=== PATIENT | female | born 1995 | race Caucasian/White ===

== ENCOUNTER 2019-02-17 14:17 | Inpatient (IN) | payer OTHER ==
[2019-02-17 19:08] VITALS: BMI 18.6
--- NOTE | 2019-02-17 20:06 | HP ---
COWS - Scale Resting Pulse: 2= [place] 101-120 Sweatin=Flushed/Facial Moisture Restless Observation: 5= Unable to Sit Still Pupil Size: 0= Normal to Room Light Bone or Joint Aches: 4=Acute Joint/Muscle Pain Runny Nose/ Eye Tearin= Runny Nose/Eyes GI Upset > 30mins: 2= Nausea/Diarrhea Tremor Observation: 2= Slight Tremor Visible Yawning Observation: 0= None Anxiety or Irritability: 2=Irritable/Anxious Goose Flesh Skin: 3=Piloerection COWS Score: 24 CIWA Score Nausea/Vomitin-Mild Nausea/No Vomiting Muscle Tremors: 3 Anxiety: 4-Mod. Anxious/Guarded Agitation: 4-Moderately Restless Paroxysmal Sweats: 3 Orientation: 1-Uncertain about Date Tacttile Disturbances: 2-Mild Itch/Numbness/Burn Auditory Disturbances: 0-None Visual Disturbances: 0-None Headache: 0-None Present CIWA-Ar Total Score: 18 - Admission Criteria [facility]ASAS Guidelines: Admission for Medically Managed Detox: Requires at least one of the followin. CIWA greater than 12 2. Seizures within the past 24 hours 3. Delirium tremens within the past 24 hours 4. Hallucinations within the past 24 hours 5. Acute intervention needed for co occurring medical disorder 6. Acute intervention needed for co occurring psychiatric disorder 7. Severe withdrawal that cannot be handled at a lower level of care (continued vomiting, continued diarrhea, abnormal vital signs) requiring intravenous medication and/or fluids 8. Patient presents the following: CIWA greater than 12 Admission Criteria Met: Admission criteria met Admission [facility] Chief Complaint: C/O WITHDRAWAL SX'S Allergies/Adverse Reactions: Allergies Allergy/AdvReac Type Severity Reaction Status Date / Time No Known Allergies Allergy Verified 02/17/19 19:01 History of Present Illness: 23 Y.O FEMALE WITH ALCOHOL, BENZO, AND HEROIN (IVDU) HERE FOR DETOX. CLIENT IS SELF REFERRED. FIRST ADMISSION HERE BUT IS KNOWN TO SEVERAL DETOX'ES. REPORTS LAST TXMENT 1 MONTH AGO AT [facility]. DENIES ANY SIGNIFICANT PERIOD OF CLEAN TIME. + HX/O BLACK OUTS, DENIES SI/HI/AVH. HOMELESS, UNEMPLOYED, WARRANTS. Exam Limitations: No Limitations - Ebola screening Have you traveled outside of the country in the last 21 days: No (N) Have you had contact with anyone from an Ebola affected area: No Do you have a fever: No - Review of Systems Constitutional: Chills, Malaise, Night Sweats, Changes in sleep EENT: reports: Blurred Vision (GLASSES), Other (RINORRHEA) Respiratory: reports: No Symptoms reported Cardiac: reports: No Symptoms Reported GI: reports: Constipated, Nausea, Abdominal cramping : reports: No Symptoms Reported Musculoskeletal: reports: Back Pain, Joint Pain, Neck Pain Integumentary: reports: Other (COLD CLAMMY) Neuro: reports: Headache, Tremors Endocrine: reports: No Symptoms Reported Hematology: reports: No Symptoms Reported Psychiatric: reports: Orientated x3, Anxious, Depressed (DENIES SI/HI/AVH) Other Systems: Reviewed and Negative Patient History - Patient Medical History Hx Anemia: No Hx Asthma: No Hx Chronic Obstructive Pulmonary Disease (COPD): No Hx Cancer: No Hx Cardiac Disorders: No Hx Congestive Heart Failure: No Hx Hypertension: No Hx Hypercholesterolemia: No Hx Pacemaker: No HX Cerebrovascular Accident: No Hx Seizures: No Hx Dementia: No Hx Diabetes: No Hx Gastrointestinal Disorders: No Hx Liver Disease: No Hx Genitourinary Disorders: No Hx Sexually Transmitted Disorders: No Hx Renal Disease (ESRD): No Hx Thyroid Disease: No Hx Human Immunodeficiency Virus (HIV): No Hx Hepatitis C: Yes (NO TXMENT) Hx Depression: Yes Hx Suicide Attempt: No Hx Bipolar Disorder: No Hx Schizophrenia: No - Patient Surgical History Past Surgical History: No - PPD History Previous Implant?: Yes Documented Results: Negative w/o proof Implanted On Prior R Admission?: No PPD to be Administered?: Yes - Reproductive History Patient is a Female of Child Bearing Age (11 -55 yrs old): Yes Last Menstrual Period: 01/23/19 LMP comment: REG Patient : No (NEG [facility]) - Smoking Cessation Smoking history: Current every day smoker Have you smoked in the past 12 months: Yes Aproximately how many cigarettes per day: 20 Cigars Per Day: 0 Hx Chewing Tobacco Use: No Initiated information on smoking cessation: Yes 'Breaking Loose' booklet given: 02/17/19 - Substance & Tx. History Hx Alcohol Use: Yes Hx Substance Use: Yes Substance Use Type: Alcohol, Cocaine, Heroin, Tranquilizers (KLONOPINS- UTOX NEG ) Hx Substance Use Treatment: Yes ([facility]I) - Substances abused Alcohol Substance route: Oral Frequency: Daily Amount used: 1/2 PINT VODKA Age of first use: 10 Date of last use: 02/17/19 Alprazolam (Xanax) Substance route: Oral Frequency: Daily Amount used: 4MG Age of first use: 12 Date of last use: 02/16/19 Heroin Substance route: Injection Frequency: Daily Amount used: 30-40 BAGS Age of first use: 16 Date of last use: 02/17/19 Cocaine Substance route: Smoking Frequency: Daily Amount used: $200 Age of first use: 12 Date of last use: 02/17/19 Family Disease History - Family Disease History Family Disease History: Diabetes: Father (ALCOHOL- DM, HTN-ALIVE), Heart Disease : Father, Other: Grandparent (PATERNAL-ALCOHOLICS), Father, Mother (ALCOHOL- BRAIN TUMORS-ALIVE), Sister (HEROIN ADDICT) Admission Physical Exam S - Vital Signs Vital Signs: Vital Signs - 24 hr 02/17/19 18:56 Temperature 98.6 F Pulse Rate 114 H Respiratory 18 Rate Blood Pressure 115/70 - Physical General Appearance: Yes: Moderate Distress, Tremorous (FELT), Anxious HEENTM: Yes: EOMI, Normocephalic, Normal Voice, SHONNA, Pharynx Normal, Rhinorrhea Respiratory: Yes: Chest Non-Tender, Lungs Clear, Normal Breath Sounds, No Respiratory Distress Neck: Yes: No masses,lesions,Nodules, Supple, Trachea in good position Breast: Yes: Breast Exam Deferred Cardiology: Yes: Regular Rhythm, Regular Rate, S1, S2 Abdominal: Yes: Normal Bowel Sounds, Non Tender, Flat, Soft Genitourinary: Yes: Within Normal Limits (NO C/O) Back: Yes: Normal Inspection Musculoskeletal: Yes: full range of Motion, Gait Steady Extremities: Yes: Normal Capillary Refill, Normal Range of Motion, Non-Tender, Tremors Neurological: Yes: Fully Oriented, Alert, Motor Strength 5/5, Normal Mood/Affect Integumentary: Yes: Cold, Clammy, Track Buckley Lymphatic: Yes: Within Normal Limits - Diagnostic (1) Alcohol dependence with uncomplicated withdrawal Current Visit: Yes Status: Acute (2) Opioid dependence with withdrawal Current Visit: Yes Status: Acute (3) Cocaine dependence, uncomplicated Current Visit: Yes Status: Acute (4) Sedative, hypnotic or anxiolytic abuse, uncomplicated Current Visit: Yes Status: Suspected (5) Nicotine dependence Current Visit: Yes Status: Chronic Qualifiers: Nicotine product type: cigarettes Substance use status: uncomplicated Qualified Code(s): F17.210 - Nicotine dependence, cigarettes, uncomplicated (6) Substance induced mood disorder Current Visit: Yes Status: Suspected (7) IVDU (intravenous drug user) Current Visit: Yes Status: Acute (8) Homeless Current Visit: Yes Status: Suspected (9) At risk for dehydration due to poor fluid intake Current Visit: Yes Status: Acute Cleared for Admission [facility] - Detox or Rehab [facility] Level of Care: Medically Managed Detox Regimen/Protocol: Methadone/Valium Claeared for Rehab Admission: No Inpatient Rehab Admission - Rehab Decision to Admit Inpatient rehab admission?: No
[2019-02-17] MEDS ORDERED: ACETAMINOPHEN 325 MG TABLET (FP) PO PRN ×2 (20:15)
[2019-02-17] MEDS ORDERED: MENTHOL/PHENOL 1 EACH UD MM PRN (20:15)
[2019-02-17] MEDS ORDERED: METHOCARBAMOL 500 MG TABLET PO PRN (20:15)
[2019-02-17] MEDS ORDERED: DICYCLOMINE HCL 10 MG CAPSULE PO PRN (20:15)
[2019-02-17] MEDS ORDERED: MELATONIN 5 MG TABLETS PO PRN (20:15)
[2019-02-17] MEDS ORDERED: MAGNESIUM CITRATE 300 ML BOTTLE PO PRN (20:15)
[2019-02-17] MEDS ORDERED: NALOXONE HCL 0.4 MG/ML VIAL IVPUSH PRN (20:15)
[2019-02-17] MEDS ORDERED: MAG HYDROX/AL HYDROX/SIMETH 30 ML UNIT-DOSE CUP PO PRN (20:15)
[2019-02-17] MEDS ORDERED: P-EPHED 60MG/TRIPROLIDI 2.5MG TABLET PO PRN (20:15)
[2019-02-17] MEDS ORDERED: guaiFENesin 200 MG/10 ML 10 ML UNIT-DOSE CUPS PO PRN (20:15)
[2019-02-17] MEDS ORDERED: BISMUTH SUBSALICYLATE 524 MG/30 ML UD PO PRN (20:15)
[2019-02-17] MEDS ORDERED: IBUPROFEN 400 MG TABLET (FP) PO PRN (20:15)
[2019-02-17] MEDS ORDERED: MAGNESIUM HYDROX 2400MG/30ML ORAL SUSPENSION 30 ML CUP PO PRN (20:15)
[2019-02-17] MEDS ORDERED: ONDANSETRON *ODT* 4 MG TABLET SL PRN (20:15)
[2019-02-17] MEDS ORDERED: hydrOXYzine PAMOATE 25 MG CAPSULE (FP) PO PRN (20:15)
[2019-02-17] MEDS ORDERED: cloNIDine HCL 0.1 MG TABLET PO PRN (20:15)
[2019-02-17] MEDS: diazePAM 5 MG TABLET PO SCH (21:35)
[2019-02-17] MEDS: THIAMINE HCL 100 MG TABLET (FP) PO SCH (21:35)
[2019-02-17] MEDS ORDERED: METHADONE HCL 10 MG TABLET (FOR DETOX USE ONLY) PO ONE (23:00)
[2019-02-18] MEDS: diazePAM 5 MG TABLET PO SCH ×3 (05:59→22:18)
[2019-02-18] MEDS ORDERED: METHADONE HCL 10 MG TABLET (FOR DETOX USE ONLY) PO ONE (10:00)
[2019-02-18 10:51] LABS: PH,URINE 6.5 (5.0-8.0); URINE APPEARANCE CLEAR; URINE BILIRUBIN NEGATIVE (NEGATIVE); URINE COLOR YELLOW; URINE GLUCOSE (UA) NEGATIVE (NEGATIVE); URINE KETONE NEGATIVE (NEGATIVE); URINE LEUK ESTERASE NEGATIVE (NEGATIVE); URINE NITRITE NEGATIVE (NEGATIVE); URINE PROTEIN NEGATIVE (NEGATIVE); URINE UROBILINOGEN 0.2 mg/dL (0.2-1.0)
[2019-02-18 10:52] LABS: ALBUMIN 3.3 g/dl (3.4-5.0); BILIRUBIN,TOTAL 0.4 mg/dL (0.2-1); BLOOD UREA NITROGEN 12.1 mg/dL (7-18); CREATININE 0.7 mg/dL (0.55-1.3); POTASSIUM 4.3 mmol/L (3.5-5.1); TOT PROT 6.6 g/dl (6.4-8.2)
[2019-02-18] MEDS: NICOTINE 21 MG/24 HOURS TOPICAL PATCH TD SCH (10:52)
[2019-02-18] MEDS: diazePAM 5 MG TABLET PO PRN ×2 (10:52→18:22)
[2019-02-18] MEDS: PRENATAL VITAMINS W/ FOLIC ACID TABLET (FP) PO SCH (10:52)
[2019-02-18 11:07] LABS: HEMATOCRIT 40.4 % (32.4-45.2); HEMOGLOBIN 13.3 GM/dL (10.7-15.3); MCH 28.2 pg (25.7-33.7); MEAN CELL VOLUME 85.6 fl (80-96); MEAN PLT VOLUME 8.3 fl (7.5-11.1); RBC 4.72 M/mm3 (3.60-5.2); RDW 15.1 % (11.6-15.6); WHITE BLOOD COUNT 7.3 K/mm3 (4.0-10.0)
[2019-02-18 11:30] LABS: PLATELET COUNT 292 K/MM3 (134-434)
--- NOTE | 2019-02-18 13:59 | PN ---
S CIWA - CIWA Score Nausea/Vomitin-No Nausea/No Vomiting Muscle Tremors: 3 Anxiety: 3 Agitation: 2 Paroxysmal Sweats: 3 Orientation: 0-Oriented Tacttile Disturbances: 1-Very Mild Itch/Numbness Auditory Disturbances: 0-None Visual Disturbances: 0-None Headache: 2-Mild CIWA-Ar Total Score: 14 BHS COWS - Scale Resting Pulse: 0= [place] 80 or Below Sweatin= Beads of Sweat on Face Restless Observation: 1= Difficult to Sit Still Pupil Size: 0= Normal to Room Light Bone or Joint Aches: 2= Severe Diffuse Aches Runny Nose/ Eye Tearin= None GI Upset > 30mins: 0= None Tremor Observation of Outstretched Hands: 2= Slight Tremor Visible Yawning Observation: 1= 1-2x During Session Anxiety or Irritability: 2=Irritable/Anxious Goose Flesh Skin: 0=Smooth Skin COWS Score: 11 S Progress Note (SOAP) Subjective: c/o anxiety/irritability, headache, sweats, and shakes. Objective: 02/18/19 13:58 Vital Signs 02/18/19 02/18/19 06:29 09:47 Temperature 97.4 F L 98.4 F Pulse Rate 69 61 Respiratory 18 17 Rate Blood Pressure 102/64 94/58 L Lab Results WBC 7.3 K/mm3 (4.0-10.0) 02/18/19 07:40 RBC 4.72 M/mm3 (3.60-5.2) 02/18/19 07:40 Hgb 13.3 GM/dL (10.7-15.3) 02/18/19 07:40 Hct 40.4 % (32.4-45.2) 02/18/19 07:40 MCV 85.6 fl (80-96) 02/18/19 07:40 MCHC 33.0 g/dl (32.0-36.0) 02/18/19 07:40 RDW 15.1 % (11.6-15.6) 02/18/19 07:40 Plt Count 292 K/MM3 (134-434) 02/18/19 07:40 Sodium 138 mmol/L (136-145) 02/18/19 07:40 Potassium 4.3 mmol/L (3.5-5.1) 02/18/19 07:40 Chloride 105 mmol/L (98-107) 02/18/19 07:40 Carbon Dioxide 28 mmol/L (21-32) 02/18/19 07:40 Anion Gap 5 MMOL/L (8-16) L 02/18/19 07:40 BUN 12.1 mg/dL (7-18) 02/18/19 07:40 Creatinine 0.7 mg/dL (0.55-1.3) 02/18/19 07:40 Random Glucose 88 mg/dL (74-106) 02/18/19 07:40 Calcium 9.0 mg/dL (8.5-10.1) 02/18/19 07:40 Labs noted. Assessment: 02/18/19 13:59 AOX3, in no acute distress Full ROM, ambulating in the unit. Withdrawal symptoms. Plan: continue detox increase fluids.
[2019-02-18] MEDS: NICOTINE POLACRILEX 2 MG GUM BUC PRN ×4 (14:09→20:39)
--- NOTE | 2019-02-18 18:14 | CONSULT ---
[facility] Psychiatric Consult - Data Date of interview: 02/18/19 Admission source: [facility] Identifying data: First admission to [facility] for this 23 y/o female self-referred for detoxification (heroin, cocaine, benzodiazepine). Interviewed at [address] [place] [address]. Patient is single, no children, homeless, unemployed and deprived of any source of income. Substance Abuse History: Confirmed by patient. Details in current [facility] report as follows : Smoking history: Current every day smoker. Have you smoked in the past 12 months: Yes. Aproximately how many cigarettes per day: 20. Cigars Per Day: 0. Hx Chewing Tobacco Use: No. Initiated information on smoking cessation : Yes. 'Breaking Loose' booklet given: 02/17/19. - Substance & Tx. History. Hx Alcohol Use: Yes. Hx Substance Use: Yes. Substance Use Type: Alcohol, Cocaine, Heroin, Tranquilizers (KLONOPINS- UTOX NEG). Hx Substance Use Treatment: Yes ([facility]I). - Substances abused. Alcohol. Substance route: Oral. Frequency: Daily. Amount used: 1/2 PINT VODKA. Age of first use: 10. Date of last use: 02/17/19. Alprazolam (Xanax). Substance route: Oral. Frequency: Daily. Amount used: 4MG. Age of first use: 12. Date of last use: 02/16/19. Heroin. Substance route: Injection. Frequency: Daily. Amount used: 30-40 BAGS. Age of first use: 16. Date of last use: 02/17/19. Cocaine. Substance route: Smoking. Frequency: Daily. Amount used: $200. Age of first use: 12. Date of last use: 02/17/19 Medical History: Hepatitis C. Psychiatric History: Patient denies history of psychiatric hospitalizations, OPD care or suicide attempts. Physical/Sexual Abuse/Trauma History: Patient denies history of abuse. Additional Comment: Toxicology not available for review. Mental Status Exam - Mental Status Exam Alert and Oriented to: Time, Place, Person Cognitive Function: Good Patient Appearance: Well Groomed Mood: Withdrawn Affect: Mood Congruent, Constricted Patient Behavior: Fatigued, Appropriate, Cooperative Speech Pattern: Clear Voice Loudness: Normal Thought Process: Intact, Goal Oriented Thought Disorder: Not Present Hallucinations: Denies Suicidal Ideation: Denies Homicidal Ideation: Denies Insight/Judgement: Poor Sleep: Well Appetite: Good Gait/Station: Normal Psychiatric Findings - Problem List ([place] 1, 2,3) (1) Alcohol dependence with uncomplicated withdrawal Current Visit: Yes Status: Acute (2) Opioid dependence with withdrawal Current Visit: Yes Status: Acute (3) Sedative, hypnotic or anxiolytic abuse, uncomplicated Current Visit: Yes Status: Chronic (4) Cocaine dependence, uncomplicated Current Visit: Yes Status: Chronic (5) Nicotine dependence Current Visit: Yes Status: Chronic Qualifiers: Nicotine product type: cigarettes Substance use status: uncomplicated Qualified Code(s): F17.210 - Nicotine dependence, cigarettes, uncomplicated - Initial Treatment Plan Initial Treatment Plan: Psychoeducation. Sleep hygiene. Detoxification. Relapse prevention discussed in this session. AA/NA meetings. Observation.
[2019-02-18] MEDS: THIAMINE HCL 100 MG TABLET (FP) PO SCH (22:18)
[2019-02-19] MEDS: NICOTINE POLACRILEX 2 MG GUM BUC PRN ×2 (06:57→09:03)
[2019-02-19] MEDS ORDERED: METHADONE HCL 10 MG TABLET (FOR DETOX USE ONLY) PO ONE (10:00)
[2019-02-19] MEDS ORDERED: diazePAM 5 MG TABLET PO SCH (10:00)
[2019-02-19] MEDS: PRENATAL VITAMINS W/ FOLIC ACID TABLET (FP) PO SCH (10:33)
[2019-02-19] MEDS: NICOTINE 21 MG/24 HOURS TOPICAL PATCH TD SCH (10:33)
[2019-02-19 13:22] VITALS: BP 107/69; PULSE 84; TEMP 97.7
--- NOTE | 2019-02-19 14:46 | DS ---
[facility] Detox Discharge Summary Admission Date: 02/17/19 Discharge Date: 02/19/19 - History Present History: Opioid Dependence, Sedative Dependence Pertinent Past History: SEE ABOVE - Physical Exam Results Vital Signs: Vital Signs Temperature 97.7 F 02/19/19 13:20 Pulse Rate 84 02/19/19 13:20 Respiratory Rate 18 02/19/19 13:20 Blood Pressure 107/69 02/19/19 13:20 O2 Sat by Pulse Oximetry (%) Pertinent Admission Physical Exam Findings: PT ADMITTED IN WITHDRAWAL CO WITHDRAWAL SX AND AGGRESSIVE SYMPTOMATIC MANAGEMENT ATTEMPTED HOWEVER PT IN SPITE OF EXTENSIVE MOTIVATIONAL COUNSELING RE OVERDOSE LOSS OF TOLERANCE AND RELAPSE CHOSE TO SIGN OUT AMA - Medication Discharge Medications: Ambulatory Orders NK [No Known Home Medication] 02/17/19 - AMA Did Patient Leave Against Medical Advice: Yes
--- NOTE | 2019-02-19 16:54 | EKG ---
Test Reason : Blood Pressure : / mmHG Vent. Rate : 089 BPM Atrial Rate : 089 BPM P-R Int : 128 ms QRS Dur : 082 ms QT Int : 376 ms P-R-T Axes : 076 044 032 degrees QTc Int : 457 ms NORMAL SINUS RHYTHM NORMAL ECG NO PREVIOUS ECGS AVAILABLE Confirmed by MD KIRK, GRAYSON ([id number]) on 02/19/2019 4:54:20 PM Referred By: Confirmed By:GRAYSON BRADLEY MD
[2019-02-20] MEDS ORDERED: diazePAM 5 MG TABLET PO SCH (06:00)
[2019-02-20] MEDS ORDERED: METHADONE HCL 10 MG TABLET (FOR DETOX USE ONLY) PO ONE (10:00)
[2019-02-21] MEDS ORDERED: METHADONE HCL 5 MG TABLET (FOR DETOX USE ONLY) PO ONE (06:00)
== END 2019-02-19 14:13 | disposition left against medical advice (07) | DRG 770 ==
LOC: YASAS 14:17 → Y3N 20:17
PROVIDERS: ADMIT Surgery; ATTEND Surgery
PROC: HZ2ZZZZ Detoxification Services for Substance Abuse Treatment (ICD-10-PCS; principal; 2019-02-17)
DX: F10.230 Alcohol dependence with withdrawal, uncomplicated (principal); F11.23 Opioid dependence with withdrawal; F13.230 Sedative, hypnotic or anxiolytic dependence with withdrawal, uncomplicated; F14.20 Cocaine dependence, uncomplicated; F17.210 Nicotine dependence, cigarettes, uncomplicated; F31.9 Bipolar disorder, unspecified; F19.24 Other psychoactive substance dependence with psychoactive substance-induced mood disorder; B18.2 Chronic viral hepatitis C; Z91.89 Other specified personal risk factors, not elsewhere classified; Z59.0 Homelessness
CPT/HCPCS: 36415; 80053; 81003; 81025; 85027; 86593; 93005; 93010; J0735